=== PATIENT | male | born 1955 | race Hispanic/Latino ===

== ENCOUNTER → 2023-12-01 08:53 | Emergency (ER) | payer SELFPAY ==
--- NOTE | 2023-12-01 09:02 | ED.GENMED ---
History of Present Illness
<PURA Pascal - Last Filed: 12/02/23 20:57>
General
Chief Complaint: Back Pain
Source: patient
Exam Limitations: none
Time Seen by Provider: 12/01/23 08:54
Nursing documentation reviewed up to this point in time: agreed with
History of Present Illness
History of Present Illness:
68 yr old Lao-speaking male brought from [facility] via EMS. EMS reports that patient is a resident at [facility] and became very violent throwing things. Police were called to scene. Patient complained of back pain to police and agreed
to come to the hospital. Patient arrives to the ER he is awake he is alert he will tell me his name but is mumbling in Lao. He is not answering questions for translation and language line territory sales consultant does report he has mumbling and he is not
able to understand his language.
I spoke to nurse at [facility] who reports pt is new to them for past several weeks . He came to them from [facility] . Pt as per nursing nursery supervisor was yelling today throwing things broke glass
He presented to them w/ dx dementia, psychosis, mood distrubance and agitaion. He was documented as homeless while at [facility].
Review of Systems
<PURA Pascal - Last Filed: 12/02/23 20:57>
Review of Systems
Allergies reviewed?: Yes
Unable to obtain full review of systems at this time due to: other (Uncooperative)
Phy Exam
<PURA Pascal - Last Filed: 12/02/23 20:57>
General Physical Exam
General Presentation: no apparent distress
General age: appears stated age
General Skin: warm and dry
General Habitus: normal
General Mental: angry
General Hydration: appears well hydrated
Neurological Exam
Neurological Exam: alert and other (Mumbling in Equatorial Guinean and Lao intermittently)
Musculoskeletal Exam
Musculoskeletal Exam: full ROM
Skin Exam
Skin Exam: normal color and warm/dry
Psychiatric Exam
Psychiatric Exam: agitated
Course
<PURA Pascal - Last Filed: 12/02/23 20:57>
Orders/Labs/Results
Orders:
Orders
12/01/23 10:15
Haloperidol Lactate [Haldol] 5 mg IM NOW STA
12/01/23 10:16
Lorazepam [Ativan] 2 mg IM NOW STA
12/01/23 10:18
Electrocardiogram (*1) Urgent
Reason for Study: QTc Monitoring
CT Head W/o Iv Contrast Urgent
Comment:
Reason For Exam: agitated
Crisis Consult Routine
Reason for Consult: agitation/aggressive behavior
EKG- Treatment ONCE
Drug Screen, Urine [Urine Drug Abuse Screen] Urgent
Date Specimen was Collected: 12/02/23
Time Specimen was Collected: 11:08
Urinalysis Reflex To Culture Urgent
Date Specimen was Collected: 12/02/23
Time Specimen was Collected: 11:08
12/01/23 10:36
1:1 Observation - Suicide/ Violent Behavior As Directed
PSYCHIATRY CONSULT Urgent
Consulting Provider: Felicia Dorsey
Was physician already notified: Yes
12/01/23 10:52
Case Management Consult ONCE
Case Management Consult: Discharge Planning
12/01/23 10:57
Crisis Consult Routine
Reason for Consult: psychosis, aggressive behavior
12/01/23 11:02
Acetaminophen Urgent
Alcohol Urgent
COVID-19 Antigen Urgent
Source: Nasal Swab
Complete Blood Count/With Diff Urgent
Comprehensive Metabolic Panel Urgent
Creatine Phosphokinase Urgent
Comment: ADD
Syphilis/T. pallidum Ab Reflex Urgent
Comment: ADD
TSH Urgent
Comment: ADD
12/01/23 11:03
Midazolam HCl [Versed] 5 mg IM NOW STA
12/01/23 12:20
Add On- LAB Urgent
Tests Added?: CPK
12/01/23 12:32
Olanzapine [Zyprexa Zydis (Orally Disintegrating)] 5 mg PO BIDPRN PRN
Olanzapine [Zyprexa Zydis (Orally Disintegrating)] 5 mg PO NOW STA
12/01/23 12:35
Clonidine [Catapres] 0.1 mg PO NOW STA
12/01/23 12:41
Valproic Acid Level [Depakane] Urgent
12/01/23 12:43
Add On- LAB Urgent
Tests Added?: tsh, syphillis screen
12/01/23 17:44
Olanzapine [Zyprexa Zydis (Orally Disintegrating)] 5 mg PO BIDPRN PRN
12/01/23 17:46
Haloperidol Lactate [Haldol] 5 mg IM Q4HPRN PRN
12/01/23 17:47
0.9% Sodium Chloride [Nss (Preservative Free)] 0.5 ml IV BIDPRN PRN
Lorazepam [Ativan] 1 mg IM BIDPRN PRN
12/01/23 20:00
Divalproex Delayed Rel. 12 Hr [Depakote (12 Hr Release)] 250 mg PO BID
Olanzapine [Zyprexa Zydis (Orally Disintegrating)] 5 mg PO BID
12/01/23 23:17
Haloperidol Lactate [Haldol] 5 mg IM NOW STA
Lorazepam [Ativan] 2 mg IM NOW STA
12/02/23 11:10
Fentanyl, Urine Urgent
12/02/23 12:05
Olanzapine [Zyprexa Zydis (Orally Disintegrating)] 5 mg PO NOW STA
12/02/23 12:11
Lorazepam [Ativan] 2 mg PO NOW STA
12/02/23 22:00
Olanzapine [Zyprexa Zydis (Orally Disintegrating)] 7.5 mg PO HS
12/03/23 08:00
Olanzapine [Zyprexa Zydis (Orally Disintegrating)] 5 mg PO DAILY
Abnormal Lab Results
12/01/23 12/01/23 12/02/23
11:02 12:41 11:10
WBC 12.8 H 10^3/uL
(4.8-10.8)
Abs Immat Gran (auto) 0.1 H 10^3/uL
(0-0.05)
Absolute Neuts (auto) 9.5 H 10^3/uL
(1.4-6.5)
Absolute Monos (auto) 1.1 H 10^3/uL
(0.1-0.6)
Immature Gran % 0.9 H %
(0-0.5)
Lymphocytes % 15.0 L %
(20.5-51.1)
Carbon Dioxide 17 L mmol/L
(22-30)
Creatinine 1.4 H mg/dL
(0.7-1.3)
Glucose 135 H mg/dl
(70-99)
Acetaminophen < 10 L ug/ml
(10-30)
Valproic Acid 15.9 L ug/ml
(50.0-120.0)
U Benzodiazepines Scrn Positive H
(Negative)
12/01/23 11:02
12/01/23 11:02
Vital Signs
Initial and Last Documented VS:
Initial Vital Signs
Pulse Resp Pulse Ox
117 16 98
12/01/23 09:06 12/01/23 09:06 12/01/23 09:06
Last Documented Vital Signs
Pulse Resp BP Pulse Ox
110 16 127/85 97
12/02/23 10:59 12/02/23 10:59 12/02/23 10:59 12/02/23 10:59
<Gary Garner MD - Last Filed: 12/01/23 14:14>
Orders/Labs/Results
Orders:
Orders
12/01/23 10:15
Haloperidol Lactate [Haldol] 5 mg IM NOW STA
12/01/23 10:16
Lorazepam [Ativan] 2 mg IM NOW STA
12/01/23 10:18
Electrocardiogram (*1) Urgent
Reason for Study: QTc Monitoring
CT Head W/o Iv Contrast Urgent
Comment:
Reason For Exam: agitated
Crisis Consult Routine
Reason for Consult: agitation/aggressive behavior
EKG- Treatment ONCE
Drug Screen, Urine [Urine Drug Abuse Screen] Urgent
Date Specimen was Collected: 12/02/23
Time Specimen was Collected: 11:08
Urinalysis Reflex To Culture Urgent
Date Specimen was Collected: 12/02/23
Time Specimen was Collected: 11:08
12/01/23 10:36
1:1 Observation - Suicide/ Violent Behavior As Directed
PSYCHIATRY CONSULT Urgent
Consulting Provider: Felicia Dorsey
Was physician already notified: Yes
12/01/23 10:52
Case Management Consult ONCE
Case Management Consult: Discharge Planning
12/01/23 10:57
Crisis Consult Routine
Reason for Consult: psychosis, aggressive behavior
12/01/23 11:02
Acetaminophen Urgent
Alcohol Urgent
COVID-19 Antigen Urgent
Source: Nasal Swab
Complete Blood Count/With Diff Urgent
Comprehensive Metabolic Panel Urgent
Creatine Phosphokinase Urgent
Comment: ADD
Syphilis/T. pallidum Ab Reflex Urgent
Comment: ADD
TSH Urgent
Comment: ADD
12/01/23 11:03
Midazolam HCl [Versed] 5 mg IM NOW STA
12/01/23 12:20
Add On- LAB Urgent
Tests Added?: CPK
12/01/23 12:32
Olanzapine [Zyprexa Zydis (Orally Disintegrating)] 5 mg PO BIDPRN PRN
Olanzapine [Zyprexa Zydis (Orally Disintegrating)] 5 mg PO NOW STA
12/01/23 12:35
Clonidine [Catapres] 0.1 mg PO NOW STA
12/01/23 12:41
Valproic Acid Level [Depakane] Urgent
12/01/23 12:43
Add On- LAB Urgent
Tests Added?: tsh, syphillis screen
12/01/23 17:44
Olanzapine [Zyprexa Zydis (Orally Disintegrating)] 5 mg PO BIDPRN PRN
12/01/23 17:46
Haloperidol Lactate [Haldol] 5 mg IM Q4HPRN PRN
12/01/23 17:47
0.9% Sodium Chloride [Nss (Preservative Free)] 0.5 ml IV BIDPRN PRN
Lorazepam [Ativan] 1 mg IM BIDPRN PRN
12/01/23 20:00
Divalproex Delayed Rel. 12 Hr [Depakote (12 Hr Release)] 250 mg PO BID
Olanzapine [Zyprexa Zydis (Orally Disintegrating)] 5 mg PO BID
12/01/23 23:17
Haloperidol Lactate [Haldol] 5 mg IM NOW STA
Lorazepam [Ativan] 2 mg IM NOW STA
12/02/23 11:10
Fentanyl, Urine Urgent
12/02/23 12:05
Olanzapine [Zyprexa Zydis (Orally Disintegrating)] 5 mg PO NOW STA
12/02/23 12:11
Lorazepam [Ativan] 2 mg PO NOW STA
12/02/23 22:00
Olanzapine [Zyprexa Zydis (Orally Disintegrating)] 7.5 mg PO HS
12/03/23 08:00
Olanzapine [Zyprexa Zydis (Orally Disintegrating)] 5 mg PO DAILY
Abnormal Lab Results
12/01/23 12/01/23 12/02/23
11:02 12:41 11:10
WBC 12.8 H 10^3/uL
(4.8-10.8)
Abs Immat Gran (auto) 0.1 H 10^3/uL
(0-0.05)
Absolute Neuts (auto) 9.5 H 10^3/uL
(1.4-6.5)
Absolute Monos (auto) 1.1 H 10^3/uL
(0.1-0.6)
Immature Gran % 0.9 H %
(0-0.5)
Lymphocytes % 15.0 L %
(20.5-51.1)
Carbon Dioxide 17 L mmol/L
(22-30)
Creatinine 1.4 H mg/dL
(0.7-1.3)
Glucose 135 H mg/dl
(70-99)
Acetaminophen < 10 L ug/ml
(10-30)
Valproic Acid 15.9 L ug/ml
(50.0-120.0)
U Benzodiazepines Scrn Positive H
(Negative)
12/01/23 11:02
12/01/23 11:02
Vital Signs
Initial and Last Documented VS:
Initial Vital Signs
Pulse Resp Pulse Ox
117 16 98
12/01/23 09:06 12/01/23 09:06 12/01/23 09:06
Last Documented Vital Signs
Pulse Resp BP Pulse Ox
110 16 127/85 97
12/02/23 10:59 12/02/23 10:59 12/02/23 10:59 12/02/23 10:59
<PURA Pascal - Last Filed: 12/02/23 20:57>
MDM/Problems Addressed
MDM/Problems Addressed:
Patient is a 68-year-old male presents to the ER via EMS. Patient is a resident of [facility] as per EMS patient was transferred to [facility] a couple weeks ago he was homeless prior to that and seen at [facility]. EMS reports that patient
was violent aggressive throwing things breaking things and running at people while at the half-way and was sent here for evaluation. Patient arrives awake alert he is not cooperative he seems to speak a little Equatorial Guinean although Lao.
Language line was used however patient as per educational adviser is mumbling and not speaking Lao.
Patient initially not cooperative intermittently calm and then with outburst of agitation yelling.
I spoke to [facility] several times and have limited information but they do report the patient was given diagnosis of psychosis mood disturbance dementia from [facility]. Patient's meds include clonidine Depakote and Geodon..
dc with DR Garner pt very agitated here yelling/screaming. IM Haldol and IM Ativan given pt placed in restraints. will check labs/ct head
Patient was given additional medication(versed) labs reviewd. Psychiatry was consulted by ED physician due to patient being a danger to himself and others 302 completed by ED physician.
<PURA Pascal - Last Filed: 12/02/23 20:57>
*Critical Care Note
Total Time (30-74mins, 75-104mins- exclusive of procedures): Not Applicable
ED Attending Note
<PURA Pascal - Last Filed: 12/02/23 20:57>
-
Portions of this chart may have been created with voice recognition software.� Occasional wrong word or��sound alike� substitutions may have occurred due to the inherent limitations of voice recognition software.
<Gary Garner MD - Last Filed: 12/01/23 14:14>
ED Attending Note
Patient seen and examined by attending physician: Yes
ED Attending Note:
I have seen and evaluated the patient with a [id number] encounter. I have spoken to the advance practicer provider and involved in the medical history, the physical exam, medical decision making.
Evaluation and management service: agree unless noted differently below.
Results interpretation: agree unless noted differently below.
Focused HPI: 68-year-old male with apparent medical history of unspecified dementia, unspecified neurocognitive disorder, unspecified psychotic disorder (all per half-way chart; patient cannot provide any past medical history and no other
information sources available. He presents to the emergency room from [facility] for acute agitation and aggressive behavior. Apparently had just been admitted at [facility] after previously being homeless; apparently was
admitted for psychiatric reasons�we attempted to obtain some history about his recent hospitalization from [facility] but unfortunately they were unable provide over the phone any details beyond 'treated for psych.' We sent a records request from
[facility] but unfortunately unable to obtain medical records over the weekend. Discussed with staff at [facility] apparently he was treated for 'psychosis' at [facility] and was sent there afterwards. He is currently on clonidine, Geodon, Depakote
according to his medication list. Apparently today at [facility] he became acutely agitated and was throwing things and aggressive towards staff. Police were called to the scene and ultimately he was brought to the ER via EMS. He arrives to
the ER yelling and screaming in Lao. Initially redirectable. We attempted to use territory sales consultant to obtain some history but patient is mumbling, belligerent and just yelling, not answering our questions.
Physical exam: Patient pacing around the room appears acutely agitated, occasionally yelling. Hypertensive and tachycardic.
Medical Decision Making: Patient with recent history as above apparently being treated for unspecified psychotic disorder presents to the ER acutely agitated from half-way. Very aggressive on arrival but initially redirectable. Waiting some
time in the ER while we made attempts to obtain collateral history patient becoming more aggressive, leaving his room and screaming at staff. Squaring up with security threatening violence. Patient sedated with Haldol and Ativan for staff and
patient's safety. Clearly unsafe to disposition back to half-way. Will check CT head, screening labs, urinalysis, tox screen to evaluate for any secondary causes of his aggression. Case discussed with psychiatry for consultation. Will
require adjustment of medications at minimum. Anticipate disposition issues; consult placed to case management.
After Haldol and Ativan patient still very agitated, will treat with Versed.
Patient now much more calm after medications as above. Case was discussed with psychiatry consultation is pending--in my judgment patient is a danger to others and to himself at this point based on witnessed behavior here. He clearly has poor
insight and poor judgment and does not have good decision-making capacity. Discussed with crisis team will file a 302 for involuntary hold. His initial screening blood work was reviewed: CBC shows slight leukocytosis 12.8, mild renal insufficiency
with a creatinine of 1.4�unclear chronicity. Will check a CPK to rule out any signs of rhabdomyolysis as he was quite agitated and required some restraints briefly. We did check EKG for QTc monitoring after Haldol�QTc acceptable. Continue to
monitor.
Discharge Plan
Departure
Patient Disposition: Psych Facility
Date of Disposition: 12/01/23
Time of Disposition: 14:14
Discharge Problem:
Psychosis
Referrals:
Pastor Driscoll MD [Family Provider] -
Interventions
Interventions:
*Risk Screen - Suicide Last Done: 12/01/23 11:17
*General Assessment Last Done: 12/01/23 11:17
*Neglect/Abuse Screening Last Done: 12/01/23 11:17
ED- Fall Risk Assessment Last Done: 12/01/23 10:53
*ED COVID-19 Vaccine History Last Done: 12/01/23 11:17
ED-Musculoskeletal Assessment Last Done: 12/01/23 10:48
Discharge Date and Time
Print Language: POLISH
[2023-12-01 10:03] VITALS: BP 172/113
[2023-12-01 10:07] VITALS: BMI 23.2
[2023-12-01] MEDS: HALDOL 5 MG IM ×2 (10:28→23:27)
[2023-12-01] MEDS: ATIVAN 2 MG IM ×2 (10:30→23:26)
[2023-12-01] MEDS: VERSED 5 MG IM (11:12)
[2023-12-01 11:13] LABS: % Basophils 0.5 % (0-2); % Eosinophils 0.5 % (0-6); % Immature Granulocytes 0.9 % (0-0.5); % Monocytes 8.7 % (1.7-9.3); % Neutrophils 74.4 % (42.2-75.2); Absolute Basophils 0.1 10^3/uL (0-0.2); Absolute Eosinophils 0.1 10^3/uL (0-0.7); Absolute Immature Granulocytes 0.1 10^3/uL (0-0.05); Absolute Lymphocytes 1.9 10^3/uL (1.2-3.4); Absolute Monocytes 1.1 10^3/uL (0.1-0.6); Absolute Neutrophils 9.5 10^3/uL (1.4-6.5); Hematocrit 40.7 % (39.0-52.0); Hemoglobin 14.1 g/dL (13.0-18.0); Mean Corp Hgb Conc. 34.6 g/dL (33.0-37.0); Mean Corpuscular Hgb 29.1 pg (27.0-31.0); Mean Corpuscular Volume 84.1 fL (80.0-94.0); Mean Platelet Volume 9.4 fL (7.4-10.4); Nucleated Red Blood Cells % 0 % (-); Platelet Count 219 10^3/uL (130-400); Red Blood Cell Count 4.84 10^6/uL (4.70-6.10); Red Cell Dist. Width 12.6 % (11.5-14.5); White Blood Cell Count 12.8 10^3/uL (4.8-10.8)
[2023-12-01 11:17] VITALS: BP 132/81
[2023-12-01 11:25] LABS: ALT (SGPT) 13 U/L (0-50); AST (SGOT) 23 U/L (17-59); Acetaminophen < 10 ug/ml (10-30); Albumin 4.9 g/dl (3.5-5.0); Alkaline Phosphatase 86 U/L (38-126); Blood Urea Nitrogen 20 mg/dl (9-20); Calcium 9.9 mg/dl (8.4-10.2); Carbon Dioxide 17 mmol/L (22-30); Chloride 103 mmol/L (98-107); Estimated Creatinine Clearance 47 ml/min; Glucose 135 mg/dl (70-99); Potassium 4.5 mmol/L (3.5-5.1); Sodium 140 mmol/L (135-145); Total Bilirubin 1.1 mg/dl (0.2-1.3); Total Protein 7.8 g/dl (6.3-8.2); eGFR 54.75
[2023-12-01 11:30] LABS: COVID-19 Antigen Negative (Negative)
[2023-12-01 11:32] LABS: Alcohol None Detected
--- NOTE | 2023-12-01 11:39 | CM ---
CM consult for discharge planning
Call to crisis- they are awaiting outcome of psych eval to determine plan
Will alert CM if assistance if required with dc planning
[2023-12-01 12:19] VITALS: BP 108/77
[2023-12-01 12:58] LABS: Creatine Phosphokinase 118 U/L (55-170)
[2023-12-01 13:22] LABS: Depakane 15.9 ug/ml (50.0-120.0)
[2023-12-01 13:28] VITALS: BP 135/79
[2023-12-01 13:48] LABS: TSH 3.26 uIU/ml (0.47-4.68)
--- NOTE | 2023-12-01 15:17 | CON.MD ---
Consultation - Medical
-
68 yo Lebanese-speaking M w/ hx of unspecified dementia and possibly unspecified psychosis, presents from [facility] for agitation & aggression. Minimal history provided by NH - provided names of his medications, however doses are unknown. Had
recently been psychiatrically admitted to [facility] (for 'psychosis'), prior to this was reportedly homeless - is new to [facility] as of a few weeks ago. ED sent records request to [facility] however none received back as of yet. While at
[facility], became agitated, started throwing things at staff - police were called and he was brought to ED by EMS. On arrival to ED was screaming in Lebanese, staff was unable to use solutions executive cloud sales due to degree of agitation and inability of
solutions executive cloud sales to understand his speech. Needed restrainst briefly, received IM haldol & ativan.
Current medications: clonidine, Geodon, Depakote.
QTc
Mild leukocytosis
Depakote level low at 15
QTc 417
Pt unable to participate in meaningful interview - will not respond when attempted to interview, laying in bed with cover over his head. Notably malodorous and disheveled. Security reported hearing him talking to himself in room prior to my
entering.
MSE: no eye contact, unable to assess thought process or content, unable to assess memory, orientation, speech as pt not participating in interview. Suspect AH given his being heard talking to himself. Malodorous and disheveled.Insight/judgement
poor.
Unspecified psychosis, based on presentation and provided hx
302 petitioned and upheld, bed searching ongoing
Zyprexa 5mg BID + depakote 250mg BID, recheck depakote level if still here
Zydis 5mg BID PRN acute agitation
Haldol 2mg IM + Ativan 1mg IM BIDPRN acute agitation with PO refusal
defer clonidine as dose and compliance is unknown
[2023-12-01 17:40] VITALS: BP 121/68
[2023-12-01] MEDS: ZYPREXA ZYDIS (ORALLY DISINTEGRATING) 5 MG PO (20:31)
[2023-12-01] MEDS: DEPAKOTE (12 HR RELEASE) 250 MG PO (20:35)
--- NOTE | 2023-12-01 23:30 | EDRN ---
At approximately 2330, pt. became extremely agitated as second pt. was placed in room next to his. Pt. screaming, pt. medicated per verbal orders, pt. was swinging at security and staff as staff approached pt. Pt. was aggressive w/ staff upon staff
exiting room, but eventually laid back on stretcher. Will continue to monitor.
[2023-12-02] MEDS: ZYPREXA ZYDIS (ORALLY DISINTEGRATING) 5 MG PO ×2 (02:13→12:18)
--- NOTE | 2023-12-02 09:21 | EDRN ---
Unable to administer medications at this time. Pt getting agitated at the sight of pills. Placed in applesauce on the breakfast tray. Will recheck once he is done eating breakfast. Unable to get urine or vital signs at this time.
--- NOTE | 2023-12-02 09:21 | CM ---
CM reviewed pt with crisis
Plan for 302 and pt will need [facility] funding
Bed search by crisis team
No further follow up needed from CM at this time
CM will remains available for support as needed
[2023-12-02] MEDS: ZYPREXA ZYDIS (ORALLY DISINTEGRATING) PO (10:08)
[2023-12-02] MEDS: DEPAKOTE (12 HR RELEASE) PO (10:08)
[2023-12-02] MEDS: ATIVAN 1 MG IM (10:09)
[2023-12-02] MEDS: HALDOL 5 MG IM (10:09)
[2023-12-02 10:59] VITALS: BP 127/85
[2023-12-02 11:30] LABS: Amphetamines Negative (Negative); Barbiturates Negative (Negative); Benzodiazepines Positive (Negative); Buprenorphine Negative (Negative); Cocaine Negative (Negative); Marijuana Negative (Negative); Methadone Negative (Negative); Methamphetamines Negative (Negative); Opiates Negative (Negative); Phencyclidine Negative (Negative); Tricyclic Antidepressants Negative (Negative)
[2023-12-02 11:34] LABS: Urine Albumin Negative (Neg - Trace); Urine Bilirubin Negative (Negative); Urine Color Yellow; Urine Glucose Negative (Negative); Urine Ketone Negative (Negative); Urine Leukocyte Negative (Negative); Urine Nitrite Negative (Negative); Urine Occult Blood Negative (Negative); Urine Urobilinogen Negative (Neg - 1+)
[2023-12-02 11:35] LABS: Urine Character Clear (Clear)
[2023-12-02 11:46] LABS: Fentanyl, Urine Negative (Negative)
[2023-12-02] MEDS: ATIVAN 2 MG PO (12:18)
--- NOTE | 2023-12-02 16:23 | W.PN.UPDATE ---
Update Note
Progress Note Update
Pt seen & evaluated - was out of room talking to security. Pleasant and engaged today though notable word salad at times which makes it difficult to engage in meaningful interview. He does speak German but switches back and forth between German &
Korean, this along with word salad makes for difficult interaction. Does not remember being at [facility], though says he lives in [place] and has a home in [place] - wanted to walk home from here, when I explained that it's much too far
to walk he laughed and said OK.
As per security it seems that earlier today he was agitated and needed PRN medications but has since settled. Continues to demonstrate poor insight and at times seems to be talking to himself.
Increase Zydis to 5mg AM + 7.5mg HS
No other changes
Remains on 302, bed search ongoing
[2023-12-02] MEDS: DEPAKOTE (12 HR RELEASE) 250 MG PO (20:56)
[2023-12-02] MEDS: ZYPREXA ZYDIS (ORALLY DISINTEGRATING) 7.5 MG PO (20:56)
[2023-12-03] MEDS: ZYPREXA ZYDIS (ORALLY DISINTEGRATING) 5 MG PO ×2 (06:43→09:08)
[2023-12-03 07:30] VITALS: BP 184/91
[2023-12-03] MEDS: DEPAKOTE (12 HR RELEASE) 250 MG PO ×2 (09:08→20:29)
--- NOTE | 2023-12-03 14:14 | W.PN.UPDATE ---
Update Note
Progress Note Update
Pt seen, reviewed 302, tele-psych eval, ED record. Pt on 302 due to aggressive behavior, psychotic state, reportedly was yelling and throwing things at [facility] home. In [facility] ER, pt noted wandering, yelling at patients, tried
to punch security staff. Pt was given multiple doses of antipsychotic meds- Zyprexa Zydis and Haldol IM. This morning, pt agitated, rambling loudly, disorganized. Pt speaking some Omani, asking for coffee and eggs. Pt unkempt/disheveled, with
staring eye contact, internally preoccupied, mumbling to self. Pt later returned to stretcher with blanket over his head.
Imp: Unspecified Psychotic d/o, R/o schizoaffective d/o
Rec: 303 hearing tomorrow, will petition for inpatient psychiatric treatment
Will continue on Zyprexa Zydis
[2023-12-04] MEDS: ZYPREXA ZYDIS (ORALLY DISINTEGRATING) 7.5 MG PO ×2 (00:57→23:59)
[2023-12-04 04:31] VITALS: BP 164/101
[2023-12-04] MEDS: ATIVAN 1 MG IM ×2 (04:38→12:25)
[2023-12-04] MEDS: ZYPREXA ZYDIS (ORALLY DISINTEGRATING) 5 MG PO (08:13)
[2023-12-04] MEDS: DEPAKOTE (12 HR RELEASE) 250 MG PO ×2 (08:14→20:42)
[2023-12-04 11:25] LABS: Syphilis/T. pallidum Ab Reflex Negative (Negative)
[2023-12-04 12:04] VITALS: BP 156/98
--- NOTE | 2023-12-04 13:30 | CM ---
Addendum entered by Maritza Black RN 12/04/23 15:42:
CARLOS spoke with Maude from [facility]. Maude stated that patient was accepted from [facility] with the understanding that patient's guardian would provide a social security number to facility to assist with Medicaid application. As of this
note, [facility] does not have patient's social security number. Maude would be willing to accept patient back if social security number was provided by guardian. CARLOS updated electronic equipment trades worker and provided crisis with phone number for Maude to discuss
further.
Original Note:
CARLOS was asked to assist with obtaining insurance coverage for patient. CARLOS spoke with Twyla at [facility]. She confirmed that patient is not active with Medicaid. She stated that her counterpart at [place], Hetal, is currently working on emergency
medicaid application. Twyla will continue to work with Hetal to assist with application. CARLOS updated crisis immigration case manager.
CARLOS spoke with Juana Lamar regarding patient. CARLOS left message also for Maude at [facility] for further collateral information.
--- NOTE | 2023-12-04 16:55 | W.PN.UPDATE ---
Update Note
Progress Note Update
Pt seen, he continues to be disorganized, loud, labile. Hygiene remains poor, pt malodorous. 303 hearing held with [address]; pt committed for up to 20 days of inpatient treatment. Pt loud and disruptive throughout, at one point singing
and happy, then angry. Pt taking Zyprexa and Depakote. Pt noted up last night multiple times yelling, was given prn Ativan. Monegasque-speaking ER staff tried to assist, reported pt's speech is incoherent/not clear in Monegasque, sounds like a mix
with Chinese, disorganized.
Imp/Rec: Schizoaffective d/o; Inpatient psychiatric placement on 303. Will follow
[2023-12-04 20:47] VITALS: BP 106/68
--- NOTE | 2023-12-05 03:05 | DOWNTIME ---
There was a [employer] Downtime on 12/05/2023 from 0100 to 12/05/2023 at 0300. Downtime documentation of patient's care, including medication administrations, has been reconciled in the electronic record per guidelines. Refer to the
patient's paper chart under the miscellaneous tab to see printed paper medication records and downtime forms.
[2023-12-05] MEDS: ZYPREXA ZYDIS (ORALLY DISINTEGRATING) 5 MG PO (08:39)
[2023-12-05] MEDS: DEPAKOTE (12 HR RELEASE) 250 MG PO ×2 (08:39→20:31)
--- NOTE | 2023-12-05 13:28 | ED.CRISIS ---
ED Crisis Note
ED Crisis Note
Subjective:
Patient currently eating no complaints. Previous notes reviewed
Objective:
Nontoxic currently eating no respiratory distress alert
Assessment/Plan:
Patient currently on 303. Medically stable. Continue current management
--- NOTE | 2023-12-05 15:20 | W.PN.UPDATE ---
Update Note
Progress Note Update
patient seen chart reviewed. patient is currently on a 303 commitment. he is according to crisis staff undocumented. the [facility] is trying to get him set up for medical assistance. staff has told me that they made efforts over weekend to interview
him w a foreign language interpreter but the hourly sign language interpreter could not understand him and said he was not speaking south african but speaking 'gibberish'. i spoke to him today and while he is NOT a good historian he did tell me he lives [place] the street' as well as his
name. he answered that he had gotten enough food. i told him he had beautiful blue eyes which he does and he seemed to respond appropriately. that said, there were many things he said which i did not understand. i don't know that this represents
gibberish but he does seem to have some type of speech impediment or dysarthria. it is also possible that the zyprexa he has been prescribed and depakote are helping to organize his thoughts. depakote level is low. will get level in a couple of
days along w repeat cr which is elevated. otherwise labs look ok. also need to monitor bp which has been high intermittently.
[2023-12-05 20:30] VITALS: BP 142/76
[2023-12-05] MEDS: ZYPREXA ZYDIS (ORALLY DISINTEGRATING) 7.5 MG PO (22:19)
[2023-12-06 09:00] VITALS: BP 177/88
--- NOTE | 2023-12-06 09:01 | ED.CRISIS ---
ED Crisis Note
ED Crisis Note
Assessment/Plan:
Difficult to place as pt is undocument person. Had been at [facility]. Seen by Dr. Ledesma. On Depakote / [place].
[2023-12-06] MEDS: ZYPREXA ZYDIS (ORALLY DISINTEGRATING) 5 MG PO (09:06)
[2023-12-06] MEDS: DEPAKOTE (12 HR RELEASE) 250 MG PO ×2 (09:06→20:12)
[2023-12-06 19:22] VITALS: BP 148/74
[2023-12-06] MEDS: ZYPREXA ZYDIS (ORALLY DISINTEGRATING) 7.5 MG PO (22:41)
[2023-12-07 08:13] VITALS: BP 158/113
[2023-12-07] MEDS: ZYPREXA ZYDIS (ORALLY DISINTEGRATING) 5 MG PO (08:15)
[2023-12-07] MEDS: DEPAKOTE (12 HR RELEASE) 250 MG PO ×2 (08:15→20:25)
[2023-12-07 09:38] VITALS: BP 153/99
--- NOTE | 2023-12-07 12:38 | CM ---
Addendum entered by Maritza Black RN 12/07/23 15:23:
Elizabeth stated that as per her sap basis administrator Jeff Hernandez will accept patient back. CARLOS updated bog worker.
Addendum entered by Maritza Black RN 12/07/23 13:18:
CM spoke with Elizabeth from [facility]. CM advised Elizabeth that patient's discharge planning is complicated by lack of social security number and also disposition from inpatient psychiatry as they are refusing to have patient return.
Elizabeth will discuss with her sap basis administrator possible options. Elizabeth will update this CM.
Original Note:
CM was updated by [facility] that patient does not have a social security number as per guardian. Due to patient's undocumented status, [facility] cannot accept back . [facility] is currently working on an inpatient psychiatry placement but due to
patient's lack of disposition they cannot accept. CARLOS updated CM director.
--- NOTE | 2023-12-07 13:20 | W.PN.UPDATE ---
Update Note
Progress Note Update
patient seen chart reviewed. patient largely cooperative with current medication zyprexa and depakote. still very difficult to understand him when he speaks. he is eating and drinking normally. sleep seems okay would check depakote level. at this
point stymied in finding a [facility] bed or [place] bc no ss # or insurance. cm working on this. asked dr walsh via [employer] whether we need to rx bp. ordered depakote level.
--- NOTE | 2023-12-07 14:09 | ED.CRISIS ---
ED Crisis Note
ED Crisis Note
Assessment/Plan:
I spoke Dr. Campos did report some concerns about ongoing high blood pressure readings. His blood pressure has frequently been above the 150s range. Will start losartan. Still no prospects for placement but he is not safe enough to be
discharged at this time.
[2023-12-07] MEDS: COZAAR 25 MG PO (16:39)
[2023-12-07 20:29] VITALS: BP 151/107
[2023-12-07] MEDS: ZYPREXA ZYDIS (ORALLY DISINTEGRATING) 7.5 MG PO (22:22)
[2023-12-08 07:48] LABS: Depakane 14.3 ug/ml (50.0-120.0)
[2023-12-08] MEDS: ZYPREXA ZYDIS (ORALLY DISINTEGRATING) 5 MG PO (08:44)
[2023-12-08] MEDS: DEPAKOTE (12 HR RELEASE) 250 MG PO (08:44)
[2023-12-08] MEDS: COZAAR 25 MG PO (08:44)
== END ==
LOC: EMR 08:53
PROVIDERS: Psychiatry & Neurology Psychiatry; CONSULT PHYSICIAN Psychiatry & Neurology Psychiatry; EMERGENCY PHYSICIAN Emergency Medicine; FAMILY PHYSICIAN Internal Medicine
DX: R45.1 Restlessness and agitation (principal); F02.82 Dementia in other diseases classified elsewhere, unspecified severity, with psychotic disturbance; F02.83 Dementia in other diseases classified elsewhere, unspecified severity, with mood disturbance; M54.9 Dorsalgia, unspecified; R45.6 Violent behavior; F02.811 Dementia in other diseases classified elsewhere, unspecified severity, with agitation; F25.9 Schizoaffective disorder, unspecified; Z11.52 Encounter for screening for COVID-19; N28.9 Disorder of kidney and ureter, unspecified
CPT/HCPCS: 99285; 96372 ×7; 70450; 80053; 80143; 80164; 80306; 80307; 81003; 82077; 82550; 84443; 85025; 86780; 87811; 93005